=== PATIENT | female | born 1940 | race Caucasian/White ===

== ENCOUNTER 2016-09-06 21:30 | Emergency (ER) | payer OTHER ==
[2016-09-06 21:38] VITALS: RESP 18
[2016-09-06 22:30] LABS: % IMMATURE GRANULYOCYTES 0.2 % (0.0-1.1); ABSOLUTE IMMATURE GRANULOCYTES 0.02 10^3/uL (0.00-0.10); ADD DIFF? NO; ADD MORPH? NO; ADD SCAN? NO; ATYPICAL LYMPHOCYTE FLAG 20 (0-99); FRAGMENT RBC FLAG 0 (0-99); HEMATOCRIT 36.8 % (38.0-47.0); HEMOGLOBIN 12.7 g/dL (12.6-16.3); LEFT SHIFT FLG 0 (0-99); LIPEMIA HEMOLYSIS FLAG 90 (0-99); MEAN CELL HEMOGLOBIN CONCENTR. 34.5 g/dL (32.4-36.7); MEAN CELL VOLUME 86.8 fL (81.5-99.8); MEAN PLATELET VOLUME 10.4 fL (8.7-11.7); PLATELET CLUMPS FLAG 10 (0-99); PLATELET COUNT 167 10^3/uL (150-400); RED BLOOD CELL COUNT 4.24 10^6/uL (4.18-5.33); RED CELL DISTRIBUTION WIDTH 13.3 % (11.5-15.2)
[2016-09-06 22:36] LABS: ANION GAP 6 mEq/L (8-16); CALCIUM 9.4 mg/dL (8.5-10.4); CARBON DIOXIDE 28 mEq/l (22-31); CHLORIDE 104 mEq/L (97-110); CREATININE 1.2 mg/dL (0.6-1.0); GLOMERULAR FILTRATION RATE 44; GLUCOSE 93 mg/dL (70-100); POTASSIUM 3.7 mEq/L (3.5-5.2); SODIUM 138 mEq/L (134-144)
[2016-09-06] MEDS ORDERED: NS 1,000 ML IV ONE (22:43)
--- NOTE | 2016-09-06 22:49 | EDPHY ---
H & P Stated Complaint: vaginal bleeding, passing clots, worse over past 3 hours, since 07/31 Time Seen by Provider: 09/06/16 22:27 HPI/ROS: CHIEF COMPLAINT: Vaginal bleeding HISTORY OF PRESENT ILLNESS: Patient is a 76-year-old female with a history of migraines and uterine polyps on estrogen replacement therapy who comes to the emergency department complaining of vaginal bleeding intermittently for the last month. she states that it was very spotty at 1st but has become very heavy over the last week. She does feel lightheaded [place] the airport [place]. She has passed several clots. She thought she noticed some prolapse when she looked. No abdominal pain or rectal bleeding or abnormalities. No fevers. She has an appointment with a new OBGYN tomorrow. REVIEW OF SYSTEMS: Constitutional: denies: chills, fever, recent illness, recent injury EENTM: denies: blurred vision, double vision, nose congestion Respiratory: denies: cough, shortness of breath Cardiac: denies: chest pain, irregular heart rate, lightheadedness, palpitations Gastrointestinal/Abdominal: denies: abdominal pain, diarrhea, nausea, vomiting, blood streaked stools Genitourinary: See HPI Musculoskeletal: denies: joint pain, muscle pain Skin: denies: lesions, rash, jaundice, bruising Neurological: denies: headache, numbness, paresthesia, tingling, dizziness, weakness Hematologic/Lymphatic: denies: blood clots, easy bleeding, easy bruising Immunologic/allergic: denies: HIV/AIDS, transplant EXAM: GENERAL: Well-appearing, well-nourished and in no acute distress. HEAD: Atraumatic, normocephalic. EYES: Pupils equal round and reactive to light, extraocular movements intact, sclera anicteric, conjunctiva are normal. ENT: TMs normal, nares patent, oropharynx clear without exudates. Moist mucous membranes. NECK: Normal range of motion, supple without lymphadenopathy or JVD. LUNGS: Breath sounds clear to auscultation bilaterally and equal. No wheezes rales or rhonchi. HEART: Regular rate and rhythm without murmurs, rubs or gallops. ABDOMEN: Soft, nontender, normoactive bowel sounds. No guarding, no rebound. No masses appreciated. : The patient had a moderate amount of blood in her vaginal vault. She does have some mild cervical prolapse. Small amount of blood from her cervical os. No tenderness or visible abnormalities other than a slightly engorged cervix and redundant vaginal wall tissue. BACK: No CVA tenderness, no spinal tenderness, step-offs or deformities EXTREMITIES: Normal range of motion, no pitting or edema. No clubbing or cyanosis. NEUROLOGICAL: Cranial nerves II through XII grossly intact. Normal speech, normal gait. 5/5 strength, normal movement in all extremities, normal sensation PSYCH: Normal mood, normal affect. SKIN: Warm, dry, normal turgor, no visible rashes or lesions. Source: Patient Exam Limitations: No limitations - Personal History Current Tetanus/Diphtheria Vaccine: Yes Current Tetanus Diphtheria and Acellular Pertussis (TDAP): Yes Tetanus Vaccine Date: 2009 - Medical/Surgical History Hx Asthma: No Hx Chronic Respiratory Disease: No Hx Diabetes: No Hx Cardiac Disease: Yes Hx Renal Disease: No Hx Cirrhosis: No Hx Alcoholism: No Hx HIV/AIDS: No Hx Splenectomy or Spleen Trauma: No Other PMH: svt, tachyacardia, chronic LEON, migraines, Dupeytrens, colitis, - Family History Significant Family History: No pertinent family hx - Social History Smoking Status: Former smoker Alcohol Use: Sober Drug Use: None Constitutional: Initial Vital Signs Temperature (C) 36.6 C 09/06/16 21:35 Heart Rate 104 H 09/06/16 21:35 Respiratory Rate 18 09/06/16 21:35 Blood Pressure 153/98 H 09/06/16 21:35 O2 Sat (%) 95 09/06/16 21:35 O2 Delivery Mode Room Air Allergies/Adverse Reactions: iodine Allergy (Verified 09/06/16 21:38) Home Medications: Medication Instructions Recorded Estradiol/Norethindrone Acet 1 each PO Q2D 01/22/16 [Activella 1 mg-0.5 mg Tablet] Estrogen,Chica/Me-Testosterone 1 each PO Q2D 01/22/16 [Estratest H.s. Tablet] Herbals/Supplements -Info Only 1 ea PO DAILY 01/22/16 SUMAtriptan [Imitrex 50 MG (*)] 50 mg PO PRN PRN 01/22/16 Aspirin EC [Aspirin EC 81 mg (*)] 81 mg PO DAILY #90 tab 01/23/16 Venlafaxine Xr [Effexor Xr 37.5MG 37.5 mg PO DAILY #30 cap 01/23/16 (*)] Estradiol 09/06/16 Medical Decision Making - Diagnostics Imaging Results: Imaging Impressions Pelvic/Renal Ultrasound 09/06/16 22:44 Impression: 1. Overall enlarged and heterogeneous uterus for the patient's age, with possible one discrete fibroid at the posterior lower uterine segment, measuring maximally at 2.2 cm. Differential includes uterine cancer and adenomyosis. 2. Widened endometrium that is also echogenic at 1.6 cm, abnormal for the patient's age. While there is no discrete mass, differential includes endometrial cancer, hyperplasia, or retained products of hemorrhage in the canal. 3. Cyst in the left ovary, which is also unusual in a patient of this age. No discrete mural nodule or solid component. 4. Nonvisualization of the right ovary. Findings and recommendations discussed with Humberto Braden M.D., at 2344 hour , on September 06, 2016. Final report concurs with initial preliminary interpretation. ED Course/Re-evaluation: 11:45 p.m. we discussed the patient's ultrasound and lab results. Her bleeding has stopped. I will refer her to OBGYN here in our system. She has an appointment tomorrow but she does not remember with whom. I suggested that she may need a hysterectomy which she was very opposed to. Will allow her to have further discussions with her OBGYN. I also suggested that she follow up with gynecology directly but the patient was opposed to this idea I would like to follow up with a regular OBGYN 1st.. 10:50 p.m. consulted Elodia Massey who agrees with this plan. Differential Diagnosis: Partial list of the Differential diagnosis considered include but were not limited to; endometrial cancer, uterine cancer, follow-up, prolapse and although unlikely based on the history and physical exam, I also considered DVT , ischemia, PID. I discussed these differential diagnoses and the plan with the patient as well as the usual and expected course. The patient understands that the diagnosis is provisional and that in medicine we are not always correct and that further workup is often warranted. Usual and customary warnings were given. All of the patient's questions were answered. The patient was instructed to return to the emergency department should the symptoms at all worsen or return, otherwise to followup with the physician as we discussed. - Data Points Laboratory Results: Laboratory Results 09/06/16 22:10 09/06/16 22:10 09/06/16 09/06/16 09/06/16 22:10 22:10 22:10 WBC 8.18 10^3/uL 10^3/uL (3.80-9.50) RBC 4.24 10^6/uL 10^6/uL (4.18-5.33) Hgb 12.7 g/dL g/dL (12.6-16.3) Hct 36.8 % L % (38.0-47.0) MCV 86.8 fL fL (81.5-99.8) MCH 30.0 pg pg (27.9-34.1) MCHC 34.5 g/dL g/dL (32.4-36.7) RDW 13.3 % % (11.5-15.2) Plt Count 167 10^3/uL 10^3/uL (150-400) MPV 10.4 fL fL (8.7-11.7) Neut % (Auto) 63.4 % % (39.3-74.2) Lymph % (Auto) 25.8 % % (15.0-45.0) [place] % (Auto) 7.3 % % (4.5-13.0) Eos % (Auto) 2.7 % % (0.6-7.6) Baso % (Auto) 0.6 % % (0.3-1.7) Nucleat RBC Rel Count 0.0 % % (0.0-0.2) Absolute Neuts (auto) 5.18 10^3/uL 10^3/uL (1.70-6.50) Absolute Lymphs (auto) 2.11 10^3/uL 10^3/uL (1.00-3.00) Absolute Monos (auto) 0.60 10^3/uL 10^3/uL (0.30-0.80) Absolute Eos (auto) 0.22 10^3/uL 10^3/uL (0.03-0.40) Absolute Basos (auto) 0.05 10^3/uL 10^3/uL (0.02-0.10) Absolute Nucleated RBC 0.00 10^3/uL 10^3/uL (0-0.01) Immature Gran % 0.2 % % (0.0-1.1) Immature Gran # 0.02 10^3/uL 10^3/uL (0.00-0.10) Sodium 138 mEq/L mEq/L (134-144) Potassium 3.7 mEq/L mEq/L (3.5-5.2) Chloride 104 mEq/L mEq/L (97-110) Carbon Dioxide 28 mEq/l mEq/l (22-31) Anion Gap 6 mEq/L L mEq/L (8-16) BUN 16 mg/dL mg/dL (7-23) Creatinine 1.2 mg/dL H mg/dL (0.6-1.0) Estimated GFR 44 Glucose 93 mg/dL mg/dL (70-100) Calcium 9.4 mg/dL mg/dL (8.5-10.4) Patient ABO/Rh B POSITIVE Antibody Screen NEGATIVE Medications Given: Discontinued Medications Sodium Chloride (Ns) 1,000 mls @ 0 mls/hr IV ONCE ONE PRN Reason: Wide Open Stop: 09/06/16 22:44 Last Admin: 09/06/16 22:48 Dose: 1,000 mls Departure - Departure Disposition: Home, Routine, Self-Care Clinical Impression: Uterine bleeding Condition: Fair Instructions: Dysfunctional Uterine Bleeding (ED) Referrals: INDIO SALINAS [Medical Doctor] - As per Instructions Ida Jade DO [Primary Care Provider] - As per Instructions Elodia Massey MD [Medical Doctor] - As per Instructions Rita Fraga MD [Retired Resigned] - As per Instructions
[2016-09-07 00:45] VITALS: BP 148/92; PULSE 90; TEMP 98.4; O2SAT 97
== END 2016-09-07 00:45 | disposition home or self-care (01) ==
DX: N93.9 Abnormal uterine and vaginal bleeding, unspecified (principal); Z79.82 Long term (current) use of aspirin; Z87.891 Personal history of nicotine dependence

== ENCOUNTER 2016-12-11 07:42 | Day surgery (SDC) | payer OTHER ==
--- NOTE | 2016-12-08 17:42 | GHP ---
[f rep st] PREOP HISTORY AND PHYSICAL DATE OF ADMISSION: 12/11/2016 SURGERY TO BE PERFORMED: Hysteroscopy, dilation, curettage, polypectomy with morcellator. PREOPERATIVE DIAGNOSIS: Postmenopausal bleeding and endometrial polyp. HISTORY OF PRESENT ILLNESS: The patient is a 76-year-old, 4, para 4004 who presented to the [facility] emergency department complaining of heavy vaginal bleeding first in September of this year. She had started having a clear watery discharge approximately 8 weeks prior to presen tation requiring a change of 4-6 pads a day, and then she began having heavy bleeding again in July of 2016 and then changed to very heavy bleeding in September of 2016. She has been on hormone replacemen t therapy including high doses of estrogen therapy and was concerned that she had been on unopposed estrogen when she was in the emergency department. She was initially referred to see Dr. Rita villegas, STAFF DEVELOPMENT EDUCATOR Oncology, because of the concern for malignancy on her workup. Dr. Fraga did an endometrial biopsy that showed only blood and clots, had no tissue, no inactive endometrium. She followed up w serafin cavanaugh for a continued diagnosis. Her bleeding had slowed down by the time she had seen me but was still persistent. Initial pelvic ultrasound revealed a thickened endometrial lining that was irregu lar, was 1.6 cm, and had echogenic material throughout the entire lining and also multiple uterine f ibroids. She had a simple cyst in her left ovary measuring 4.2 x 2.7 x 3.5 cm. I followed up and r epeated an endometrial biopsy on October 10 that was adequate and showed changes consistent with benign endometrial polyp and had proliferative pattern endometrium, metaplasia, and stromal breakdown but n o evidence of malignancy. At that time, I recommended patient to have hysteroscopy, D and C, and po lypectomy because, at her age, an endometrial polyp is not normal and clearly causing her bleeding; however, I was not overly concerned for uterine cancer at this time. Patient has finally scheduled the procedure for December 11, 2016. Because of the time and the interval between initial workup and vaughn rgery as well as patient's concern to have a surgery that she "did not need anymore," we repeated th e pelvic ultrasound today and that continued to reveal a thickened endometrium, this time was 0.94 c m with an echogenic focus at the endometrium showing flow, likely endometrial polyp which measured 7 x 13 x 6 mm. She continues to have a simple left ovarian cyst, but it is decreased in size to 3 x 2.6 x 2.8 cm. I again recommend hysteroscopy, D and C, and polypectomy for a complete pathology and treatment of her postmenopausal bleeding, and patient is in agreement. Patient currently reports t hat bleeding symptoms have improved as well as her watery discharge. She is without complaints and complete negative review of systems. No fever, chills. No nausea, vomiting. No pelvic pain or pro blems. She has been off her hormone replacement therapy since August and continues to have hot flash es, night sweats, significant vaginal dryness, and decreased libido and is very unhappy and wishes t o be back on her hormone replacement therapy. PAST MEDICAL HISTORY: Significant for migraines. She takes sumatriptan p.r.n. She has had a histo ry of collagenous colitis, not active at this point. She has had some squamous cell since skin canc ers treated. Other than that, she is a very healthy woman with no chronic medical issues. PAST SURGICAL HISTORY: Significant for hysteroscopy, D and C, and polypectomy in 2001 secondary to postmenopausal bleeding. She also had a tubal ligation in 1979, and she had a cholecystectomy over 15 years ago. PAST OBSTETRICAL HISTORY: She is a 4, para 4. She has had 4 spontaneous vaginal deliveries . The largest baby was 9 pounds. She did have a delivery at about 35 weeks with her last c hild. No other complications with pregnancies or deliveries. GYNECOLOGICAL HISTORY: She is post menopausal. She has been postmenopausal for approximately 20 ye ars and has been on hormone replacement therapy during that time. She has changed her doses. Her m ost current dose was Activella 1 and 0.5 and Estratest PS 1.25 and 2.5. She has discontinued her Ac tivella and replaced with only estradiol in June of 2016, and therefore, she was on unopposed es trogen prescribed by another doctor. Her bleeding problems began in July of this year. She denies any history of abnormal Paps. I performed a Pap smear on her in September, and it was normal. No histor y of any STDs. She is for greater than 15 years. She is in a monogamous sexual relationshi and satisfied with that relationship when she is on HRT. ALLERGIES: She is allergic to iodine, it gives her syncopal episodes and hives with ingestion but n ot topical. MEDICATIONS: Her current medications include sumatriptan 50 mg as needed for migraine, topical Reti n-A, star root, and Metamucil p.r.n. She wishes to return to continue her Estratest, her sumatrip castañeda, and her Activella. FAMILY HISTORY: She has parents with high blood pressure, and her sisters have migraines. Her fath er of colon cancer, and her sister has had uterine cancer. SOCIAL HISTORY: She is . She lives part-time in [place] and part-time in [place]. She is retired. She denies tobacco, alcohol, or drug use. She has regular exercise. OBJECTIVE: VITAL SIGNS: Today, blood pressure is 136/78, weight is 123. GENERAL: She is a well-d eveloped, well-nourished white female, in no acute distress. LUNGS: Clear to auscultation bilatera lly. HEART: Regular rate and rhythm. No murmurs. ABDOMEN: Soft, nontender, nondistended. Екатерина l bowel sounds. GENITOURINARY: Pelvic exam: Atrophic genitalia. Normal parous cervix. Uterus is anteverted, anteflexed, slightly bulky, nontender. No adnexal masses. ASSESSMENT AND PLAN: 76-year-old, 4, para 4004 with episodes of watery vaginal discharge an d vaginal bleeding with a known endometrial polyp. No evidence of malignancy. We will do a hystero scopy, D and C, and polypectomy for complete diagnosis and treatment. If all of the pathology is be nign, I will discuss risks and benefits of continuing balanced hormone replacement therapy in low do ses with this patient. /[id number]/MODL
[2016-12-11] MEDS ORDERED: LIDOCAINE 1% 2 ML INJ ID PRN (08:16)
[2016-12-11] MEDS ORDERED: LR 1,000 ML IV ONE (08:16)
--- NOTE | 2016-12-11 09:40 | PDHPUP ---
History & Physical Update H&P update statement: This history and physical update is based on an assessment of the patient which was completed after admission or registration (within 24 hours), but prior to the surgery/procedure.
--- NOTE | 2016-12-11 09:58 | PDANEPAE ---
Anesthesia PST Note Patient's labs reviewed and patient appropriate for surgery: Yes
--- NOTE | 2016-12-11 09:59 | PDANEPAE ---
ANE History of Present Illness metrorrhagia ANE Past Medical History - Cardiovascular History Hx Hypertension: No Hx Arrhythmias: No Hx Chest Pain: No Hx Coronary Artery / Peripheral Vascular Disease: No Hx CHF / Valvular Disease: No Hx Palpitations: No Cardiovascular History Comment: tachycardia 2015- no Rx or tx - Pulmonary History Hx COPD: No Hx Asthma/Reactive Airway Disease: No Hx Recent Upper Respiratory Infection: No Hx Oxygen in Use at Home: No Hx Sleep Apnea: No Sleep Apnea Screening Result - Last Documented: Negative - Neurologic History Hx Cerebrovascular Accident: No Hx Seizures: No Hx Dementia: No Neurologic History Comment: Complex migraine H/A daily- on NO Rx - Endocrine History Hx Diabetes: No - Renal History Hx Renal Disorders: No - Liver History Hx Hepatic Disorders: No - Neurological & Psychiatric Hx Hx Neurological and Psychiatric Disorders: No - Cancer History Hx Cancer: Yes 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 "clear drainage before that". - Chronic Pain History Chronic Pain: No (H/A) - Surgical History Prior Surgeries: lap ann. plastic surgery-"little lift" 2016. T.L. JOSE ALEJANDRO Review of Systems - Exercise capacity METS (RN): 5 METS ANE Patient History - Allergies Allergies/Adverse Reactions: iodine Allergy (Verified 11/13/16 15:27) - Home Medications Home Medications: NK [No Known Home Meds] 11/13/16 [Last Taken Unknown] - NPO status NPO Since - Liquids (Date): 12/11/16 NPO Since - Liquids (Time): 07:15 NPO Since - Solids (Date): 12/10/16 NPO Since - Solids (Time): 20:00 - Smoking Hx Smoking Status: Former smoker ANE Labs/Vital Signs - Vital Signs Blood Pressure: 154/96 Heart Rate: 80 Respiratory Rate: 18 O2 Sat (%): 98 Height: 160.02 cm Weight: 55.338 kg ANE Physical Exam - Airway Neck exam: FROM Mallampati Score: Class 1 Mouth exam: normal dental/mouth exam - Pulmonary Pulmonary: no respiratory distress - Cardiovascular Cardiovascular: regular rate and rhythym - ASA Status ASA Status: I
[2016-12-11] MEDS ORDERED: fentaNYL 100 MCG/2 ML INJ ONE (10:13)
[2016-12-11] MEDS ORDERED: PROPOFOL 200 MG/20 ML VIAL ONE ×2 (10:14)
[2016-12-11] MEDS ORDERED: DEXAMETHASONE 4 MG/ML VIAL IVP PRN (10:26)
[2016-12-11] MEDS ORDERED: NALOXONE HCL 0.4 MG/ML INJ IVP PRN (10:26)
[2016-12-11] MEDS ORDERED: PROMETHAZINE HCL 25 MG/ML INJ IVP PRN (10:26)
[2016-12-11] MEDS ORDERED: HYDROmorphONE/DILAUDID 1 MG/ML SYR IVP PRN (10:26)
[2016-12-11] MEDS ORDERED: fentaNYL 100 MCG/2 ML INJ IVP PRN (10:26)
[2016-12-11] MEDS ORDERED: DEXAMETHASONE 4 MG/ML VIAL ONE (10:33)
[2016-12-11] MEDS ORDERED: ONDANSETRON 4 MG/2 ML VIAL ONE (10:33)
--- NOTE | 2016-12-11 11:04 | POSTOPPROG ---
Post Op Note Date of Operation: 12/11/16 Surgeon: Elodia Massey Anesthesiologist: Tommy Anesthesia: GET(General Endotracheal) Pre-op Diagnosis: post menopausal bleeding, endometrial polyp Post-op Diagnosis: same Procedure: Hysteroscopy dilation and currettage, polypectomy with morcellator Findings: endometrial polyp Inf/Abcess present in the surg proc area at time of surgery?: No Depth: Organ Space EBL: 50-100 Total fluids administered: 1000 Specimen(s): endometrial polyp and endometrial currettings.
[2016-12-11 11:06] VITALS: PULSE 79; TEMP 96.8
[2016-12-11] MEDS ORDERED: IBUPROFEN 600 MG TAB PO PRN (11:07)
[2016-12-11] MEDS ORDERED: KETOROLAC 30 MG/1 ML SDV IVP PRN (11:08)
[2016-12-11 11:26] VITALS: RESP 11
--- NOTE | 2016-12-11 12:07 | POSTANESTH ---
Post Anesthetic Evaluation Cardiovascular Status: Normal, Stable Respiratory Status: Normal, Stable Level of Consciousness/Mental Status: Can Participate in Eval Pain Control: Adequate, Prn Tx Ordered Nausea/Vomiting Control: Adequate, Prn Tx Ordered Complications Possibly Related to Anesthesia: None Noted
--- NOTE | 2016-12-11 12:12 | GOP ---
[f rep st] OPERATIVE REPORT DATE OF OPERATION: 12/11/2016 SURGEON: Elodia Massey MD ANESTHESIA: General. ANESTHESIOLOGIST: Dr. Sanders. PREOPERATIVE DIAGNOSIS: 1. Postmenopausal bleeding. 2. Endometrial polyp. POSTOPERATIVE DIAGNOSIS: 1. Postmenopausal bleeding. 2. Endometrial polyp. PROCEDURE PERFORMED: 1. Hysteroscopy. 2. Dilation and curettage. 3. Polypectomy with morcellator. FINDINGS: SPECIMENS: Pathologic specimen will be endometrial polyp and endometrial curettings. The fluid deficit with the hysteroscope fluid management system was 90 mL. ESTIMATED BLOOD LOSS: For the procedure was less than 50 mL. INDICATIONS: The patient is a 76-year-old 4, para 4-0-0-4, who complained of an episode of heavy vaginal bleeding in September of this year. She had also been having a clear watery discharge for s everal months prior to her bleeding episode. The patient has been on hormone replacement therapy fo r over 20 years and had recently switched to estrogen only hormone replacement therapy. She has an unopposed estrogen. Initial ultrasound revealed an endometrial polyp and a thickened endometrium. She had a couple attempts at endometrial biopsies, but the endometrial biopsy that I performed in [facility] showed a benign endometrial polyp, proliferative phase endometrium and metaplasia. No evidence o f malignancy. Followup ultrasound continued to reveal an endometrial polyp, even though the patient 's bleeding had waned, and I recommended a hysteroscopy, D and C and polypectomy for diagnosis and t reatment. The patient was in agreement. She was consented for the procedure. She understood the risks and be nefits, the risks including bleeding, infection, damage to the uterus including possible risk for pe rforation, damage to other organs if perforation were to occur, risk of incomplete treatment and nee d for additional treatments at a later time. She understood these risks and benefits, and agreed to proceed. DESCRIPTION OF PROCEDURE: The patient was taken to the operating room where she was placed under ge neral anesthesia without difficulty. She was prepped and draped in the dorsal lithotomy position. An open-sided speculum was placed in the vagina and a single-tooth tenaculum was used to grasp the a nterior lip of the cervix. The uterus sounded to 7 cm. The cervix was progressively dilated with P ratt dilators to a #6. The TRUCLEAR hysteroscope was then gently advanced from the cervix to the fu ndus gently, and visualization was performed. There was an endometrial polyp that was clearly visua lized along the posterior wall of the uterus, and a small polyp seen near the right tubal ostia. The morcellator was then placed through the operative channel of the hysteroscope. A window lock wa s performed and on oscillator, the polypectomy was performed with the morcellator under direct visua lization. We removed both polyps in their entirety. The uterus was then seen to have a clear endometrial cavity. The hysteroscope was removed. Curettage was then performed in a clockwise fashion to remove any debris and excess tissue. The tenaculum was removed. There was a small area of bleeding along the anterior lip of the cervix. This was cauterized with silver nitrate and good hemostasis was obtained. The speculum was remove d. The patient tolerated the procedure well. Sponge, lap, needle, and instrument counts were corre ct x3. The patient went to the recovery room in good condition. FLUIDS REPLACED: 1000 mL. URINE OUTPUT: Not measured. /[id number]/MODL
[2016-12-11 12:49] VITALS: BP 150/90; O2SAT 96
== END 2016-12-11 12:15 | disposition home or self-care (01) ==
LOC: FSGY 07:42
PROVIDERS: ATTEND Obstetrics & Gynecology
PROC: 0UDB8ZX Extraction of Endometrium, Via Natural or Artificial Opening Endoscopic, Diagnostic (ICD-10-PCS; principal; 2016-12-11 09:30)
DX: N84.0 Polyp of corpus uteri (principal); N95.0 Postmenopausal bleeding; N83.202 Unspecified ovarian cyst, left side; Z85.828 Personal history of other malignant neoplasm of skin
CPT/HCPCS: 58558; C1782; J1100; J2405; J2704; J3010

== ENCOUNTER → 2018-07-16 | Outpatient (CLI) | payer OTHER | LOC: FIMAGING 09:56 | PROVIDERS: ATTEND Psychiatry & Neurology Neurology | DX: G31.9 Degenerative disease of nervous system, unspecified (principal); G43.719 Chronic migraine without aura, intractable, without status migrainosus ==